=== PATIENT | female | born 1945 | race Caucasian/White ===

== ENCOUNTER → 2016-11-28 | Outpatient (CLI) | payer MEDICARE | LOC: RAD 09:54 | PROVIDERS: ATTEND Internal Medicine | DX: R59.1 Generalized enlarged lymph nodes (principal); R91.8 Other nonspecific abnormal finding of lung field | CPT/HCPCS: 70490; 71250 ==

== ENCOUNTER 2017-05-06 18:41 | Emergency (ER) | payer MEDICARE ==
--- NOTE | 2017-05-06 19:28 | ER Document Report ---
ED Medical Screen (RME) - General Chief Complaint: Swelling Stated Complaint: JAW SWELLING Time Seen by Provider: 05/06/17 19:26 Notes: Patient presents with swelling on the left side of the face that started suddenly today. It is worse with chewing. She denies any intraoral pain. No fevers. No trauma. No previous history of similar problems. On exam she does have tender preauricular swelling in the area of the parotid gland. TRAVEL OUTSIDE OF THE [place] IN LAST 30 DAYS: No - Related Data Allergies/Adverse Reactions: nitrofurantoin [From Macrodantin] Allergy (Verified 05/06/17 18:48) Jpgicoz-Djd-Vbl Reductase Inhibitor Allergy (Verified 05/06/17 18:48) Sulfa (Sulfonamide Antibiotics) Allergy (Verified 05/06/17 18:48) Past Medical History Renal/ Medical History: Denies: Hx Peritoneal Dialysis Physical Exam - Vital signs Vitals: Temp Pulse Resp BP Pulse Ox 98.9 F 90 16 154/78 H 96 05/06/17 18:45 05/06/17 18:45 05/06/17 18:45 05/06/17 18:45 05/06/17 18:45 Course - Vital Signs Vital signs: Temp Pulse Resp BP Pulse Ox 98.9 F 90 16 154/78 H 96 05/06/17 18:45 05/06/17 18:45 05/06/17 18:45 05/06/17 18:45 05/06/17 18:45
[2017-05-06 19:43] LABS: ABSOLUTE EOSINOPHILS # (AUTO) 0.1 10^3/uL (0.0-0.6); ABSOLUTE LYMPHOCYTES (AUTO) 0.6 10^3/uL (0.5-4.7); ABSOLUTE MONOCYTES (AUTO) 0.6 10^3/uL (0.1-1.4); ABSOLUTE NEUT (AUTO) 5.6 10^3/uL (1.7-8.2); BASOPHILS % (AUTO) 0.3 % (0-2); EOSINOPHILS % (AUTO) 1.6 % (0-6); HEMATOCRIT 33.3 % (36.0-47.0); HEMOGLOBIN 11.5 g/dL (12.0-15.5); HGB HCT DIFFERENCE 1.2; LYMPHOCYTES % (AUTO) 8.2 % (13-45); MEAN CORPUSCULAR HEMOGLOBIN 31.4 pg (27.0-33.4); MEAN CORPUSCULAR HGB CONC 34.7 g/dL (32.0-36.0); MEAN CORPUSCULAR VOLUME 91 fl (80-97); MONOCYTES % (AUTO) 8.1 % (3-13); RED BLOOD COUNT 3.67 10^6/uL (3.72-5.28); RED CELL DISTRIBUTION WIDTH 12.4 % (11.5-14.0); SEGMENTED NEUTROPHILS % (AUTO) 81.8 % (42-78); WHITE BLOOD COUNT 6.8 10^3/uL (4.0-10.5)
[2017-05-06 20:07] LABS: ALANINE AMINOTRANSFERASE 22 U/L (9-52); ALBUMIN 4.2 g/dL (3.5-5.0); ALKALINE PHOSPHATASE 109 U/L (38-126); ANION GAP 10 (5-19); ASPARTATE AMINO TRANSFERASE 24 U/L (14-36); BILIRUBIN,DIRECT 0.3 mg/dL (0.0-0.4); BILIRUBIN,TOTAL 0.5 mg/dL (0.2-1.3); BLOOD UREA NITROGEN 29 mg/dL (7-20); CALCIUM 9.9 mg/dL (8.4-10.2); CARBON DIOXIDE 29 mmol/L (22-30); CHLORIDE 100 mmol/L (98-107); GLUCOSE 95 mg/dL (75-110); POTASSIUM 4.4 mmol/L (3.6-5.0); SODIUM 139.2 mmol/L (137-145)
--- NOTE | 2017-05-06 20:31 | ER Document Report ---
ED ENT - General Chief Complaint: Swelling Stated Complaint: JAW SWELLING Time Seen by Provider: 05/06/17 19:26 Mode of Arrival: Ambulatory Information source: Patient Notes: 71-year-old female presents to ED for swelling to the left side of her face just in front of her ear suddenly started today. She states the pain is much worse when she chews. She does not have any dental pain she has no fever no trauma and no previous history of anything similar. She has tenderness with swelling in the area of the parotid gland. TRAVEL OUTSIDE OF THE [place] IN LAST 30 DAYS: No - HPI Patient complains to provider of: Other - Facial swelling left side and front of the ear and the area of the parotid gland Onset: This morning - . Onset/Duration: Sudden Quality of pain: Achy, Sharp Severity: Moderate Pain Level: 4 Associated symptoms: Face swelling Similar symptoms previously: No Recently seen / treated by doctor: No - Related Data Allergies/Adverse Reactions: nitrofurantoin [From Macrodantin] Allergy (Verified 05/06/17 18:48) Bvcwust-Uao-Cll Reductase Inhibitor Allergy (Verified 05/06/17 18:48) Sulfa (Sulfonamide Antibiotics) Allergy (Verified 05/06/17 18:48) Past Medical History - General Information source: Patient - Social History Smoking Status: Former Smoker Cigarette use (# per day): No Chew tobacco use (# tins/day): No Smoking Education Provided: No Frequency of alcohol use: None Drug Abuse: None Lives with: Family Family History: Reviewed & Not Pertinent - Past Medical History Cardiac Medical History: Reports: Hx Hypertension Pulmonary Medical History: Reports: None EENT Medical History: Reports: None Neurological Medical History: Reports: None Endocrine Medical History: Reports: None Renal/ Medical History: Reports: None Malignancy Medical History: Reports: None GI Medical History: Reports: None Musculoskeltal Medical History: Reports None Skin Medical History: Reports None Psychiatric Medical History: Reports: None Traumatic Medical History: Reports: None Infectious Medical History: Reports: None Surgical Hx: Negative Past Surgical History: Reports: None - Immunizations Immunizations up to date: Yes Review of Systems - Review of Systems Constitutional: No symptoms reported EENT: Other - left facial pain and swelling Cardiovascular: No symptoms reported Respiratory: No symptoms reported Gastrointestinal: No symptoms reported Genitourinary: No symptoms reported Female Genitourinary: No symptoms reported Musculoskeletal: No symptoms reported Skin: No symptoms reported Hematologic/Lymphatic: No symptoms reported Neurological/Psychological: No symptoms reported -: Yes All other systems reviewed and negative Physical Exam - Vital signs Vitals: Temp Pulse Resp BP Pulse Ox 98.9 F 90 16 154/78 H 96 05/06/17 18:45 05/06/17 18:45 05/06/17 18:45 05/06/17 18:45 05/06/17 18:45 Interpretation: Normal - General General appearance: Appears well, Alert - HEENT Head: Normocephalic, Atraumatic Eyes: Normal Pupils: PERRL Ears: Normal External canal: Normal Tympanic membrane: Normal Sinus: Normal Nasal: Normal Mouth/Lips: Normal Mucous membranes: Normal Pharynx: Normal Neck: Normal Notes: left facial swelling and tenderness to the area of the left parotid gland, no erythema noted. - Respiratory Respiratory status: No respiratory distress Chest status: Nontender Breath sounds: Normal Chest palpation: Normal - Cardiovascular Rhythm: Regular Heart sounds: Normal auscultation Murmur: No - Abdominal Inspection: Normal Distension: No distension Bowel sounds: Normal Tenderness: Nontender Organomegaly: No organomegaly - Back Back: Normal, Nontender - Extremities General upper extremity: Normal inspection, Nontender, Normal color, Normal ROM , Normal temperature General lower extremity: Normal inspection, Nontender, Normal color, Normal ROM , Normal temperature, Normal weight bearing. No: Nicholas's sign - Neurological Neuro grossly intact: Yes Cognition: Normal Orientation: AAOx4 [place] Coma Scale Eye Opening: Spontaneous [place] Coma Scale Verbal: Oriented [place] Coma Scale Motor: Obeys Commands [place] Coma Scale Total: 15 Speech: Normal Motor strength normal: LUE, RUE, LLE, RLE Sensory: Normal - Psychological Associated symptoms: Normal affect, Normal mood - Skin Skin Temperature: Warm Skin Moisture: Dry Skin Color: Normal Course - Re-evaluation Re-evalutation: 05/07/17 06:45 CT results discussed with patient and family and written report given to patient to follow-up with her primary doctor. Patient instructed on use of sour candy to help with her parotitis. - Vital Signs Vital signs: Temp Pulse Resp BP Pulse Ox 99.2 F 84 18 131/76 H 99 05/06/17 23:46 05/06/17 23:46 05/06/17 23:46 05/06/17 23:46 05/06/17 23:46 - Laboratory Result Diagrams: 05/06/17 19:30 05/06/17 19:30 Laboratory results interpreted by me: 05/06/17 05/06/17 05/06/17 19:30 19:30 19:30 RBC 3.67 L Hgb 11.5 L Hct 33.3 L Plt Count 134 L Seg Neutrophils % 81.8 H Lymphocytes % 8.2 L BUN 29 H Creatinine 1.30 H Est GFR ( Amer) 49 L Est GFR (Non-Af Amer) 40 L Total Protein 9.0 H Amylase 415 H - Diagnostic Test Radiology reviewed: Image reviewed, Reports reviewed Discharge - Discharge Clinical Impression: Parotitis Disposition: HOME, SELF-CARE Additional Instructions: Your exam, lab, and CT suggest parotitis. There is no elevation in your white count since this is not an infection but a blocked Parotid gland. The treatment for this is usually sucking on very sour candy such as lemon drops. Tylenol or Motrin for any discomfort. Acetaminophen Acetaminophen may be taken for pain relief or fever control. It's much safer than aspirin, offering a wider range of "safe" dosages. It is safe during . Some brand names are Tylenol, Panadol, Datril, Anacin 3, Tempra, and Liquiprin. Acetaminophen can be repeated every four hours. The following are maximum recommended dosages: WEIGHT Dose Drops Elixir Chewable( 80mg) (LBS.) drprs=droppers tsp=teaspoon 6 40 mg .4 ml (1/2) 6-11 80 mg .8 ml (full) 1/2 tsp 1 tab 12-16 120 mg 1 1/2 drprs 3/4 tsp 1 1/2 tabs 17-23 160 mg 2 drprs 1 tsp 2 tabs 24-30 240 mg 3 drprs 1 1/2 tsp 3 tabs 30-35 320 mg 2 tsp 4 tabs 36-41 360 mg 2 1/4 tsp 4 1 /2 tabs 42-47 400 mg 2 1/2 tsp 5 tabs 48-53 480 mg 3 tsp 6 tabs 54-59 520 mg 3 1/4 tsp 6 1 /2 tabs 60-64 560 mg 3 1/2 tsp 7 tabs 65-70 600 mg 3 3/4 tsp 7 1 /2 tabs 71-76 640 mg 4 tsp 8 tabs 77-82 720 mg 4 1/2 tsp 9 tabs 83-88 800 mg 5 tsp 10 tabs >89 pounds or adults 650 mg to 900 mg Acetaminophen can be repeated every four hours. Maximum daily dose not to exceed 4000 mg. These maximum recommended dosages are slightly higher than the dosages written on the product container, but these dosages are very safe and well below the toxic dosage for acetaminophen. FOLLOW-UP CARE: If you have been referred to a physician for follow-up care, call the physician s office for an appointment as you were instructed or within the next two days. If you experience worsening or a significant change in your symptoms, notify the physician immediately or return to the Emergency Department at any time for re-evaluation. Follow up with your primary doctor in the morning or 15 room 1 no AC thousand square foot. No with a well and no return to ED for any increase in symptoms or fever Forms: Elevated Blood Pressure Referrals: LORELEI PORTILLO MD [Primary Care Provider] - Follow up as needed
--- NOTE | 2017-05-06 22:28 | RADIOLOGY REPORT (SQ) ---
EXAM DESCRIPTION: CT SOFT TISSUE NECK WITH COMPLETED DATE/TIME: 05/06/2017 9:47 pm REASON FOR STUDY: left sided facial swelling COMPARISON: None. TECHNIQUE: Post IV contrasted scanning from skull base through lung apices with review of bone, soft tissue and lung windows. Reconstructed coronal and sagittal MPR images reviewed. All images stored on PACS. All CT scanners at this facility use dose modulation, iterative reconstruction, and/or weight based d osing when appropriate to reduce radiation dose to as low as reasonably achievable (ALARA). [facility]: Dose Right [facility]: CareDose [facility]: Dose Right [facility]: Teradose 4D [facility]: [employer] CONTRAST TYPE AND DOSE: contrast/concentration: Isovue 370.00 mg/ml; Total Contrast Delivered: 75.0 ml; Total Saline Delivered: 55.0 ml RENAL FUNCTION: Creatinine 1.3 RADIATION DOSE: . LIMITATIONS: None. FINDINGS: SKULL BASE: Intact. MAJOR SALIVARY GLANDS: There is diffuse enlargement of the left parotid gland with diffuse relative i ncreased density. No discrete masses are identified. There are less pronounced changes in the right parotid gland. The appearance would suggest a parotitis. There is some mild thickening of the chito cent fascial planes and some mild edematous or inflammatory changes in the adjacent subcutaneous fat. LYMPHADENOPATHY: No adenopathy. MUCOSAL MASSES OR ASYMMETRY: No mucosal masses or asymmetry. LARYNX/CORDS: No abnormal findings. VASCULAR STRUCTURES: The major vessels are patent. LUNG APICES: Clear. BONES: Degenerative changes are identified in the cervical spine THYROID: Normal size. Small thyroid nodule is identified in the left thyroid lobe. PARANASAL SINUSES: Clear. OTHER: No other significant finding. IMPRESSION: There is diffuse enlargement of the left parotid gland as noted above with diffuse relat irina increased density. No discrete masses are identified there are less pronounced changes in the ri ght parotid gland. The appearance would suggest a parotitis. Clinical correlation is recommended. Other findings as noted above TECHNICAL DOCUMENTATION: JOB ID: [id number] Quality ID # [id number]: Final reports with documentation of one or more dose reduction techniques (e.g., Au tomated exposure control, adjustment of the mA and/or kV according to patient size, use of iterative reconstruction technique) 2010 [employer]- All Rights Reserved
[2017-05-06 23:49] VITALS: BP 131/76
== END 2017-05-06 23:35 | disposition home or self-care (01) ==
LOC: ER 18:41
DX: K11.20 Sialoadenitis, unspecified (principal); M79.89 Other specified soft tissue disorders; R22.0 Localized swelling, mass and lump, head; Z87.891 Personal history of nicotine dependence
CPT/HCPCS: 36415; 70491; 80053; 82150; 85025; 99284

== ENCOUNTER 2017-10-15 15:46 | Emergency (ER) | payer MEDICARE ==
[2017-10-15] MEDS ORDERED: HYDROCODONE/ACETAMINOPHEN 5-325 MG TABLET PO ONE (16:47)
--- NOTE | 2017-10-15 16:47 | ER Document Report ---
ED Medical Screen (RME) - General Chief Complaint: Fall Stated Complaint: FALL,NOSE INJURY Time Seen by Provider: 10/15/17 16:42 Notes: Pt turned and fell over curb today. Injured nose, chin, right hand and right knee. No LOC. No N/V. Did have nose bleed at that time. Pt tender over lower orbits on palpation in RME. Unable to remove ring from right 5th finger. TRAVEL OUTSIDE OF THE [place] IN LAST 30 DAYS: No - HPI Patient complains to provider of: fall injury Onset: Just prior to arrival Onset/Duration: Sudden Quality of pain: Achy Severity: Severe Pain Level: 5 Associated Symptoms: None Exacerbated by: Denies Relieved by: Denies Similar symptoms previously: Yes Recently seen / treated by doctor: No - Related Data Smoking: Non-smoker Frequency of alcohol use: None Drug Abuse: None Allergies/Adverse Reactions: nitrofurantoin [From Macrodantin] Allergy (Verified 10/15/17 16:44) Kkazkch-Uva-Uys Reductase Inhibitor Allergy (Verified 10/15/17 16:44) Sulfa (Sulfonamide Antibiotics) Allergy (Verified 10/15/17 16:44) zonisamide Allergy (Verified 10/15/17 16:44) Past Medical History - General Information source: Patient - Social History Cigarette use (# per day): No Frequency of alcohol use: None Drug Abuse: None Lives with: Family Family history: Reviewed & Not Pertinent - Past Medical History Cardiac Medical History: Reports: Hx Hypercholesterolemia, Hx Hypertension Past Surgical History: Reports: Hx Hysterectomy - Immunizations Immunizations up to date: Yes Review of Systems - Review of Systems Constitutional: No symptoms reported EENT: See HPI Cardiovascular: No symptoms reported Respiratory: No symptoms reported Gastrointestinal: No symptoms reported Genitourinary: No symptoms reported Female Genitourinary: No symptoms reported Musculoskeletal: See HPI Skin: See HPI Hematologic/Lymphatic: No symptoms reported Neurological/Psychological: No symptoms reported -: Yes All other systems reviewed and negative Physical Exam - Vital signs Vitals: Temp Pulse Resp BP Pulse Ox 97.9 F 59 L 14 118/54 L 97 10/15/17 15:57 10/15/17 15:57 10/15/17 15:57 10/15/17 15:57 10/15/17 15:57 - General General appearance: Appears well, Alert In distress: None - HEENT Head: Normocephalic Eyes: Normal Conjunctiva: Normal Extraocular movements intact: Yes Nasal: Other - Small abrasion noted to right side of nose near bridge. Dried blood at nasal entrance. No active bleeding on exam Mucous membranes: Normal Pharynx: Normal Neck: Normal - Respiratory Respiratory status: No respiratory distress Breath sounds: Normal - Cardiovascular Rhythm: Regular Heart sounds: Normal auscultation - Abdominal Inspection: Normal Bowel sounds: Normal - Extremities Hand: Other - Abrasions noted to third fourth and fifth knuckles of right hand. Mild edema. No bruising. Patient has ring on right pinky finger which she states she is unable to remove. Ring freely rotates on finger without difficulty. Patient does not want ring cut off at this time. Notes: Neurovascular and sensation intact to both extremities. Patient able to network communications engineer providers fingers, slight decreased network communications engineer strength with right hand due to pain across knuckles. - Neurological Neuro grossly intact: Yes Cognition: Normal Orientation: AAOx4 - Psychological Associated symptoms: Normal affect, Normal mood - Skin Skin Temperature: Warm Skin Moisture: Dry - Superficial abrasions noted to third fourth and fifth knuckles and right knee. Patient also has a small scabbed abrasion to right side of right nostril. Course - Re-evaluation Re-evalutation: 10/15/17 18:51 Wounds cleansed with soap and water, bacitracin and dressings applied. Patient tolerated well. Patient states her pain level is down to a 2 after hydrocodone given. 10/15/17 18:52 CT and x-rays were negative and were discussed with patient and family. 10/15/17 18:53 - Vital Signs Vital signs: Temp Pulse Resp BP Pulse Ox 97.9 F 59 L 14 118/54 L 97 10/15/17 15:57 10/15/17 15:57 10/15/17 15:57 10/15/17 15:57 10/15/17 15:57 Doctor's Discharge - Discharge Clinical Impression: Multiple abrasions Facial contusion Qualifiers: Encounter type: initial encounter Qualified Code(s): S00.83XA - Contusion of other part of head, initial encounter Fall Qualifiers: Encounter type: initial encounter Qualified Code(s): W19.XXXA - Unspecified fall, initial encounter Condition: Good Disposition: HOME, SELF-CARE Additional Instructions: Keep wounds clean and dry. Wash with warm soapy water and change dressings once or twice daily. Tylenol or ibuprofen as needed for pain Ice and elevate right hand May apply ice packs across bridge of nose as well. Follow-up with your doctor this week for recheck Return for ring removal if swelling occurs and ring becomes too tight. Check for circulation frequently in the right fifth finger Return for any worsening symptoms. Prescriptions: Cephalexin [Cephalexin 500 MG Capsule] 1 cap PO QID #20 capsule
--- NOTE | 2017-10-15 17:22 | RADIOLOGY REPORT (SQ) ---
EXAM DESCRIPTION: CT FACIAL AREA WITHOUT COMPLETED DATE/TIME: 10/15/2017 5:09 pm REASON FOR STUDY: fall injury COMPARISON: None. TECHNIQUE: Noncontrasted images through the facial bones and orbits windowed for bone and soft tissu e. Additional coronal and sagittal reconstructed images reviewed. All images stored on PACS. All CT scanners at this facility use dose modulation, iterative reconstruction, and/or weight based d osing when appropriate to reduce radiation dose to as low as reasonably achievable (ALARA). [facility]: Dose Right [facility]: CareDose [facility]: Dose Right [facility]: Teradose 4D [facility]: [employer] RADIATION DOSE: CT Rad equipment meets quality standard of care and radiation dose reduction techniq ues were employed. CTDIvol: 30.4 mGy. DLP: 522 mGy-cm. mGy. LIMITATIONS: None. FINDINGS: FACIAL BONES: No fracture or bone lesion. ORBITS: Intact. No fracture. Symmetric intact globes and retroorbital soft tissues. Bilateral symm etric proptosis is present PARANASAL SINUSES: Mild mucous membrane thickening in the inferior left maxillary sinus. Paranasal s inuses are otherwise clear. No nasal polyps. Maxillary sinus outlets are patent. SOFT TISSUES: No mass or edema. INFERIOR BRAIN: Limited view. No acute findings. OTHER: No other significant finding. IMPRESSION: NO ACUTE FINDINGS. TECHNICAL DOCUMENTATION: JOB ID: [id number] Quality ID # 436: Final reports with documentation of one or more dose reduction techniques (e.g., Au tomated exposure control, adjustment of the mA and/or kV according to patient size, use of iterative reconstruction technique) 2010 [employer]- All Rights Reserved
--- NOTE | 2017-10-15 17:27 | RADIOLOGY REPORT (SQ) ---
EXAM DESCRIPTION: KNEE RIGHT 4 VIEWS COMPLETED DATE/TIME: 10/15/2017 5:18 pm REASON FOR STUDY: fall injury COMPARISON: 08/02/2016 NUMBER OF VIEWS: Four views. TECHNIQUE: AP, lateral, and both oblique radiographic images acquired of the right knee. LIMITATIONS: None. FINDINGS: MINERALIZATION: Normal. BONES: No acute fracture or dislocation. No worrisome bone lesions. Stable in the is a pathic wheeler e superior patella and tibial tuberosity. JOINT: No effusion. SOFT TISSUES: Vascular calcifications. No soft tissue swelling. No radio-opaque foreign body. OTHER: No other significant finding. IMPRESSION: NO ACUTE OSSEOUS ABNORMALITY. NO SIGNIFICANT CHANGE FROM PRIOR STUDY. TECHNICAL DOCUMENTATION: JOB ID: [id number] 1222 [place] 100e- All Rights Reserved
--- NOTE | 2017-10-15 17:28 | RADIOLOGY REPORT (SQ) ---
EXAM DESCRIPTION: HAND RIGHT 3 VIEWS COMPLETED DATE/TIME: 10/15/2017 5:18 pm REASON FOR STUDY: fall injury COMPARISON: None. EXAM PARAMETERS: NUMBER OF VIEWS: Three views. TECHNIQUE: AP, lateral and oblique radiographic images acquired of the right hand. LIMITATIONS: Limited evaluation 5th proximal phalanx due to patient's ring. FINDINGS: MINERALIZATION: Normal. BONES: No acute fracture or dislocation. No worrisome bone lesions. JOINTS: Osteoarthritis predominately affecting the IP joints. SOFT TISSUES: No soft tissue swelling. No foreign body. OTHER: No other significant finding. IMPRESSION: NO ACUTE OSSEOUS ABNORMALITY IDENTIFIED. LIMITED EVALUATION OF THE 5TH PROXIMAL PHALANX DUE TO PATIENT'S RING. TECHNICAL DOCUMENTATION: JOB ID: [id number] [employer]- All Rights Reserved
[2017-10-15 19:04] VITALS: BP 127/62
== END 2017-10-15 19:08 | disposition home or self-care (01) ==
LOC: ER 15:46
DX: S00.83XA Contusion of other part of head, initial encounter (principal); M25.561 Pain in right knee; M79.641 Pain in right hand; W19.XXXA Unspecified fall, initial encounter
CPT/HCPCS: 99284; 73130; 73564; 70486; A9270

== ENCOUNTER 2018-03-13 09:04 | Emergency (ER) | payer MEDICARE, OTHER ==
--- NOTE | 2018-03-13 09:29 | ER Document Report ---
ED Medical Screen (RME) - General Mode of Arrival: Wheelchair Information source: Patient TRAVEL OUTSIDE OF THE [place] IN LAST 30 DAYS: No <CHARLY CHAPMAN - Last Filed: 03/13/18 09:39> <WATSON BUTTS - Last Filed: 03/13/18 21:41> - General Chief Complaint: Chest Pain Stated Complaint: CHEST PAIN, SHORTNESS OF BREATH Time Seen by Provider: 03/13/18 09:23 Notes: Patient is a 72-year-old female who presents to the emergency department today with complaints of chest pain, shortness of breath, and generalized myalgias. Patient states 4 days ago she woke up with chills and the other symptoms began shortly after. Patient denies cough, congestion, rash, vomiting, or diarrhea. I have greeted and performed a rapid initial assessment of this patient. A comprehensive ED assessment and evaluation of the patient, analysis of test results, and completion of the medical decision making process will be conducted by additional ED providers. Review of systems: Constitutional: No symptoms reported EENT: No symptoms reported Cardiovascular: Chest pain. Respiratory: Short of breath. Denies cough. Gastrointestinal: Denies vomiting or diarrhea. Genitourinary: No symptoms reported Musculoskeletal: Generalized myalgias. Skin: Denies rashes. Hematologic/Lymphatic: No symptoms reported Neurological/Psychological: No symptoms reported Yes All other systems reviewed and negative Physical Exam: General: Alert, appears well. HEENT: Normocephalic. Atraumatic. PERRLA. Extraocular movements intact. Oropharynx clear. Neck: Supple. Respiratory: No respiratory distress. Diminished breath sounds throughout, coarse inspiratory rhonchi on the left. Abdominal: Normal Inspection. No distension. Extremities: Moves all four extremities. Neurological: Normal cognition. AAOx4. Normal speech. Psychological: Normal affect. Normal Mood. Skin: Warm. Dry. Normal color. (CHARLY CHAPMAN) - Related Data Allergies/Adverse Reactions: nitrofurantoin [From Macrodantin] Allergy (Verified 03/13/18 09:06) Mtfpyxc-Muq-Lpj Reductase Inhibitor Allergy (Verified 03/13/18 09:06) Sulfa (Sulfonamide Antibiotics) Allergy (Verified 03/13/18 09:06) zonisamide Allergy (Verified 03/13/18 09:06) Past Medical History - General Information source: Patient - Social History Cigarette use (# per day): No - former smoker Family history: Reviewed & Not Pertinent - Past Medical History Cardiac Medical History: Reports: Hx Hypercholesterolemia, Hx Hypertension Renal/ Medical History: Reports: Hx End Stage Renal Disease Past Surgical History: Reports: Hx Hysterectomy - Immunizations Immunizations up to date: Yes <CHARLY CHAPMAN - Last Filed: 03/13/18 09:39> - Vital signs Vitals: Temp 100.2 F 03/13/18 09:13 Course - Laboratory Result Diagrams: 03/13/18 09:50 03/13/18 09:50 <WATSON BUTTS - Last Filed: 03/13/18 21:41> - Vital Signs Vital signs: Temp Pulse Resp BP Pulse Ox 98.2 F 73 19 107/64 97 03/13/18 16:06 03/13/18 09:17 03/13/18 15:50 03/13/18 15:50 03/13/18 15:50 - Laboratory Laboratory results interpreted by me: 03/13/18 03/13/18 03/13/18 09:50 09:50 10:50 RBC 3.02 L Hgb 9.6 L Hct 27.5 L Plt Count 129 L Seg Neutrophils % 78.6 H Lymphocytes % 8.6 L BUN 57 H Creatinine 1.56 H Est GFR ( Amer) 39 L Est GFR (Non-Af Amer) 33 L Urine Urobilinogen 2.0 H Ur Leukocyte Esterase TRACE H Doctor's Discharge <CHARLY CHAPMAN - Last Filed: 03/13/18 09:39> <WATSON BUTTS - Last Filed: 03/13/18 21:41> - Discharge Clinical Impression: Fever, Body aches, UTI (urinary tract infection) Condition: Good Disposition: HOME, SELF-CARE Additional Instructions: Come back immediately for any persistent vomiting, rash, headache or neck stiffness, abdominal pain, or any other acute problems. Please follow-up with the urine culture as we have discussed. Please follow-up with your primary care physician as we have discussed. Prescriptions: Cephalexin Monohydrate [Keflex 500 mg Capsule] 500 mg PO Q6H 5 Days capsule Referrals: LORELEI PORTILLO MD [Primary Care Provider] - Follow up as needed Scribe Documentation - Scribe Written by Jenifer:: Jenifer Wang, 03/13/2018 0934 acting as scribe for :: Viv <CHARLY CHAPMAN - Last Filed: 03/13/18 09:39>
[2018-03-13] MEDS ORDERED: ASPIRIN 81 MG TABLET, CHEWABLE PO ONE (09:30)
[2018-03-13] MEDS ORDERED: RINGERS SOLUTION,LACTATED 1,000 ML IV ONE (09:30)
[2018-03-13 10:22] LABS: ABSOLUTE LYMPHOCYTES (AUTO) 0.6 10^3/uL (0.5-4.7); ABSOLUTE MONOCYTES (AUTO) 0.9 10^3/uL (0.1-1.4); ABSOLUTE NEUT (AUTO) 5.9 10^3/uL (1.7-8.2); BASOPHILS % (AUTO) 0.1 % (0-2); EOSINOPHILS % (AUTO) 0.2 % (0-6); HEMATOCRIT 27.5 % (36.0-47.0); HEMOGLOBIN 9.6 g/dL (12.0-15.5); LYMPHOCYTES % (AUTO) 8.6 % (13-45); MEAN CORPUSCULAR HEMOGLOBIN 31.8 pg (27.0-33.4); MEAN CORPUSCULAR HGB CONC 34.9 g/dL (32.0-36.0); MEAN CORPUSCULAR VOLUME 91 fl (80-97); MONOCYTES % (AUTO) 12.5 % (3-13); PLATELET COUNT 129 10^3/uL (150-450); RED BLOOD COUNT 3.02 10^6/uL (3.72-5.28); RED CELL DISTRIBUTION WIDTH 12.9 % (11.5-14.0); SEGMENTED NEUTROPHILS % (AUTO) 78.6 % (42-78); TOTAL CELLS COUNTED % (AUTO) 100 %; WHITE BLOOD COUNT 7.5 10^3/uL (4.0-10.5)
--- NOTE | 2018-03-13 10:24 | RADIOLOGY REPORT (SQ) ---
EXAM DESCRIPTION: CHEST 2 VIEWS COMPLETED DATE/TIME: 03/13/2018 10:13 am REASON FOR STUDY: chest pain, fever COMPARISON: None. EXAM PARAMETERS: NUMBER OF VIEWS: two views TECHNIQUE: Digital Frontal and Lateral radiographic views of the chest acquired. RADIATION DOSE: NA LIMITATIONS: none FINDINGS: LUNGS AND PLEURA: Chronic interstitial changes. No opacities, masses or pneumothorax. No pleural effusion. MEDIASTINUM AND HILAR STRUCTURES: No masses or contour abnormalities. HEART AND VASCULAR STRUCTURES: Heart upper limits of normal size. No evidence for failure. BONES: No acute findings. HARDWARE: None in the chest. OTHER: No other significant finding. IMPRESSION: BORDERLINE CARDIOMEGALY. CHRONIC INTERSTITIAL CHANGES. NO ACUTE RADIOGRAPHIC FINDING I N THE CHEST. TECHNICAL DOCUMENTATION: JOB ID: [id number] [employer]- All Rights Reserved Reading location - IP/workstation name: [email or web address]
[2018-03-13 10:42] LABS: ALANINE AMINOTRANSFERASE 19 U/L (9-52); ALBUMIN 3.6 g/dL (3.5-5.0); ALKALINE PHOSPHATASE 85 U/L (38-126); ANION GAP 12 (5-19); ASPARTATE AMINO TRANSFERASE 28 U/L (14-36); BILIRUBIN,DIRECT 0.4 mg/dL (0.0-0.4); BILIRUBIN,TOTAL 0.9 mg/dL (0.2-1.3); BLOOD UREA NITROGEN 57 mg/dL (7-20); CALCIUM 8.5 mg/dL (8.4-10.2); CARBON DIOXIDE 23 mmol/L (22-30); CHLORIDE 102 mmol/L (98-107); CREATINE KINASE 44 U/L (30-135); GLUCOSE 93 mg/dL (75-110); LIPASE 223.1 U/L (23-300); POTASSIUM 3.9 mmol/L (3.6-5.0); SODIUM 137.1 mmol/L (137-145); TOTAL PROTEIN 8.2 g/dL (6.3-8.2)
[2018-03-13 10:54] LABS: CREATINE KINASE MB < 0.22 ng/mL (<4.55); TROPONIN I < 0.012 ng/mL
--- NOTE | 2018-03-13 11:00 | ER Document Report ---
ED General - General Chief Complaint: Chest Pain Stated Complaint: CHEST PAIN, SHORTNESS OF BREATH Time Seen by Provider: 03/13/18 09:23 Mode of Arrival: Wheelchair Information source: Patient Notes: Patient is a 72-year-old female that states 4 days ago she started to have some mild intermittent chills and body aches. She denies any recorded temperature. She denies any runny nose, congestion, or cough. She states yesterday she had some mild bilateral upper abdominal tenderness but denies any abdominal pain today. She denies any flank pain, dysuria, rash, headache or neck pain. Patient does state a mild sore throat. TRAVEL OUTSIDE OF THE [place] IN LAST 30 DAYS: No - HPI Onset: Other - See above Onset/Duration: Gradual Quality of pain: Other - See above Severity: Mild Pain Level: Denies Associated symptoms: Other - See above Exacerbated by: Denies Relieved by: Denies Similar symptoms previously: Yes Recently seen / treated by doctor: No - Related Data Allergies/Adverse Reactions: nitrofurantoin [From Macrodantin] Allergy (Verified 03/13/18 09:06) Yoskrjp-Ojt-Tei Reductase Inhibitor Allergy (Verified 03/13/18 09:06) Sulfa (Sulfonamide Antibiotics) Allergy (Verified 03/13/18 09:06) zonisamide Allergy (Verified 03/13/18 09:06) Past Medical History - General Information source: Patient - Social History Smoking Status: Former Smoker Cigarette use (# per day): No - former smoker Chew tobacco use (# tins/day): No Smoking Education Provided: No Frequency of alcohol use: None Drug Abuse: None Family History: Reviewed & Not Pertinent Patient has suicidal ideation: No Patient has homicidal ideation: No - Past Medical History Cardiac Medical History: Reports: Hx Hypercholesterolemia, Hx Hypertension Renal/ Medical History: Reports: Hx End Stage Renal Disease. Denies: Hx Peritoneal Dialysis Past Surgical History: Reports: Hx Hysterectomy - Immunizations Immunizations up to date: Yes Review of Systems - Review of Systems Constitutional: Chills EENT: Throat pain. denies: Eye discharge, Nose discharge Cardiovascular: denies: Dizziness, Lightheaded Respiratory: denies: Cough, Short of breath Gastrointestinal: denies: Vomiting Genitourinary: denies: Dysuria Musculoskeletal: denies: Leg swelling Skin: Other - no hives. denies: Rash Neurological/Psychological: Other - no slurred speech -: Yes All other systems reviewed and negative Physical Exam - Vital signs Vitals: Temp 100.2 F 03/13/18 09:13 Notes: Reviewed vital signs and nursing note as charted by RN. CONSTITUTIONAL: Alert and oriented and responds appropriately to questions. Well -appearing; well-nourished HEAD: Normocephalic; atraumatic EYES: PERRL; Conjunctivae clear, sclerae non-icteric ENT: Normal nose; no rhinorrhea; minimal posterior pharyngeal erythema with no obvious exudate with a midline uvula NECK: Supple without meningismus; non-tender; no cervical lymphadenopathy, no masses CARD: Regular rate and rhythm; no murmurs, no clicks, no rubs, no gallops; symmetric distal pulses RESP: Normal chest excursion without splinting or tachypnea; breath sounds clear and equal bilaterally; no wheezes, no rhonchi, no rales ABD/GI: Normal bowel sounds; non-distended; soft, non-tender currently to deep palpation of all 4 quadrants of the abdomen BACK: The back appears normal and is non-tender to palpation, there is no CVA tenderness EXT: Normal ROM in all joints; non-tender to palpation; no edema SKIN: Normal color for age and race; warm; dry; no acute lesions noted NEURO: Moves all extremities equally; Motor and sensory function intact PSYCH: The patient's mood and manner are appropriate. Grooming and personal hygiene are appropriate. Course - Re-evaluation Re-evalutation: 03/13/18 10:59 Given the above history and physical examination, the triage doctor provided imaging studies as well as a cardiac evaluation with a liver panel, lipase, and lactic acid level. Labs thus far are unremarkable. Pending the x-ray results, lactic acid level, and urine analysis as well as the rapid strep. EKG shows a heart of 78, normal sinus rhythm, first-degree AV block, no obvious ST elevation or depression. Given the onset of symptoms 4 days ago, currently complaining of no headache, no change in mental status or rash, I do believe acute bacterial meningitis to be extremely unlikely. 03/13/18 12:28 Labs as recorded. Normal white blood cell count. Slightly elevated creatinine. No liter fluid has been provided. Patient still denies any headache. Patient states pain to bilateral arms, legs, back, and chest. There is no midline erythema or induration to the lumbar spine. Abdomen is still soft with no tenderness to deep palpation of all 4 quadrants of the abdomen. Urinalysis as recorded. Heart rate is currently 74 with a blood pressure of 92/ 65. I have provided another liter of fluid, gram of Rocephin, and have sent a urine culture. Chest x-ray shows normal heart, normal mediastinum, no fractures, normal lung shields, no pneumothorax. 03/13/18 12:41 Patient still has no tenderness to the abdomen. Heart rate is 72. Another liter fluid has been provided and the antibiotics have been given. 03/13/18 14:52 We have observed the patient for an extensive period of time. Patient still denies any abdominal or chest pain. No tenderness to palpation of the abdomen to all 4 quadrants including the epigastric region. Heart rate is 76, oxygen saturation is 99%, with a blood pressure of 100/52. Even the history, physical , complaining of pain equally to bilateral arms, legs, and joints, with no obvious joint swelling or skin lesions, no headache, with an x-ray of the chest as recorded, with no tenderness to repeat multiple examinations of the abdomen, with the urine analysis as recorded, I do believe pulmonary embolism, acute bacterial meningitis, or an acute intra-abdominal surgical pathology is likely. I have offered antibiotics, admission, and observation to the patient and family. Patient denies this at this time. She states she would like to go home. She promises to follow-up with her primary care physician as scheduled and to follow-up with the urine culture. I will start the patient on Keflex given the patient's allergies. Strict return precautions have been explained and invited to the patient family. - Vital Signs Vital signs: Temp Pulse Resp BP Pulse Ox 100.2 F 73 18 100/58 L 98 03/13/18 09:17 03/13/18 09:17 03/13/18 13:01 03/13/18 13:01 03/13/18 13:01 - Laboratory Result Diagrams: 03/13/18 09:50 03/13/18 09:50 Laboratory results interpreted by me: 03/13/18 03/13/18 03/13/18 09:50 09:50 10:50 RBC 3.02 L Hgb 9.6 L Hct 27.5 L Plt Count 129 L Seg Neutrophils % 78.6 H Lymphocytes % 8.6 L BUN 57 H Creatinine 1.56 H Est GFR ( Amer) 39 L Est GFR (Non-Af Amer) 33 L Urine Urobilinogen 2.0 H Ur Leukocyte Esterase TRACE H Discharge - Discharge Clinical Impression: Body aches Fever Qualifiers: Fever type: unspecified Qualified Code(s): R50.9 - Fever, unspecified UTI (urinary tract infection) Qualifiers: Urinary tract infection type: site unspecified Hematuria presence: without hematuria Qualified Code(s): N39.0 - Urinary tract infection, site not specified Condition: Good Disposition: HOME, SELF-CARE Additional Instructions: Come back immediately for any persistent vomiting, rash, headache or neck stiffness, abdominal pain, or any other acute problems. Please follow-up with the urine culture as we have discussed. Please follow-up with your primary care physician as we have discussed. Prescriptions: Cephalexin Monohydrate [Keflex 500 mg Capsule] 500 mg PO Q6H 5 Days capsule Referrals: LORELEI PORTILLO MD [Primary Care Provider] - Follow up as needed
[2018-03-13 11:22] LABS: VENOUS BLOOD BASE EXCESS -0.2 mmol/L; VENOUS BLOOD HCO3 24.6 mmol/L (20-32); VENOUS BLOOD PCO2 40.8 mmHg (35-63); VENOUS BLOOD PH 7.4 (7.30-7.42)
--- NOTE | 2018-03-13 11:41 | EKG REPORT ---
SEVERITY:- ABNORMAL ECG - SINUS RHYTHM FIRST DEGREE AV BLOCK : Confirmed by: Phyllis Tiwari MD 13-Mar-2018 11:40:49
[2018-03-13 11:43] LABS: APPEARANCE,URINE SLIGHTLY-CLOUDY; BILIRUBIN,URINE NEGATIVE (NEGATIVE); COLOR,URINE YELLOW; GLUCOSE, URINE NEGATIVE (NEGATIVE); KETONES,URINE NEGATIVE (NEGATIVE); LEUKOCYTE ESTERASE,URINE TRACE (NEGATIVE); NITRITE,URINE NEGATIVE (NEGATIVE); PROTEIN,URINE NEGATIVE (NEGATIVE); URINE SPECIFIC GRAVITY 1.017
[2018-03-13] MEDS ORDERED: CEFTRIAXONE RTU 1 GM/D5W 50 ML IV ONE (12:27)
[2018-03-13] MEDS ORDERED: NORMAL SALINE 1000 ML 1,000 ML IV ONE (12:27)
[2018-03-13 15:52] VITALS: BP 107/64
== END 2018-03-13 16:00 | disposition home or self-care (01) ==
LOC: ER 09:04
DX: N39.0 Urinary tract infection, site not specified (principal); M79.1 Myalgia; R50.9 Fever, unspecified; R07.9 Chest pain, unspecified; R06.02 Shortness of breath; R10.11 Right upper quadrant pain; R10.12 Left upper quadrant pain; J02.9 Acute pharyngitis, unspecified; Z87.891 Personal history of nicotine dependence; I10 Essential (primary) hypertension; I44.0 Atrioventricular block, first degree
CPT/HCPCS: 93005; 99285; 96361; 96365; 36415; 87040; 87070; 87086; 82553; 87880; 82550; 83690; 85025; 87088; 80053; 81001; 84484; 87186; 82803; 83605; 71046; 93010; A9270; J7030; J7120; J0696